=== PATIENT | female | born 1980 | race Caucasian/White ===

== ENCOUNTER → 2022-04-04 | Outpatient (CLI) | payer MEDICAID | LOC: MHCPAIN 11:15 | DX: M54.81 Occipital neuralgia (principal); M54.2 Cervicalgia; R51.9 Headache, unspecified | CPT/HCPCS: J1040 ==

== ENCOUNTER 2023-03-12 10:41 | Outpatient (RCR) | payer MEDICAID ==
[~2023-03-12] VITALS: Ht 165.1 cm; Wt 99.3 kg
[2023-03-12] VITALS (8 sets, daily range): BP systolic 119–129; BP diastolic 82–86; PULSE 62–71; TEMP 97.5
[~2023-03-12 10:41] MED LIST: ALDACTONE 25MG25 M1 PO; BENADRYL25 M2 PO; BRINTELLIX10 PO; COREG12.5 MG PO; IMITREX100 MG PO; NAMENDA 10MG TA10 MG PO; NATURAL MAGNES200 MG PO; PHENERGAN 25 TA25 MG PO; PROBIOTIC BLEN1 EACH PO; REYVOW PO; ROBAXIN 75750 MG/TAB PO; TORADOL 10MG TA10 MG PO; VITAMIN B COMPL1 SGL PO; VITAMIND3 5000 PO; VYEPTI100 MG/1 M IV; ZANAFLEX 4MG TAB4 MG PO
[2023-03-12] MEDS ORDERED: ATARAX 25MG25 MG/TAB PO (11:02)
[2023-03-12] MEDS ORDERED: ABILIFY5 MG PO (11:02)
--- NOTE | 2023-03-12 13:03 | NUR ---
Pt tolerated infusion and 1 hr monitoring period without issue. IV DC'd, site wrapped with coban. She exits dept with steady gait.
== END 2023-03-12 13:04 | disposition home or self-care (01) ==
LOC: EUO 10:41
DX: G43.109 Migraine with aura, not intractable, without status migrainosus (principal)
CPT/HCPCS: J3032

== ENCOUNTER → 2023-04-03 | Outpatient (CLI) | payer MEDICAID ==
[~2023-04-03] MED LIST changes: +ABILIFY5 MG PO; +ATARAX 25MG25 MG/TAB PO
== END ==
LOC: MHCPAIN 09:58
DX: M47.812 Spondylosis without myelopathy or radiculopathy, cervical region (principal); G44.86 Cervicogenic headache
CPT/HCPCS: J0665

== ENCOUNTER → 2023-05-29 | Outpatient (CLI) | payer MEDICAID ==
[~2023-05-29] MED LIST changes: +Lidocaine PF 2% (20 MG/ML) 5 ML VIAL ONE; +Midazolam 2 MG/2 ML VIAL ONE; +fentaNYL 50 MCG/ML 2 ML VIAL ONE
== END ==
LOC: MHCPAIN 08:58
DX: M47.812 Spondylosis without myelopathy or radiculopathy, cervical region (principal); M54.2 Cervicalgia
CPT/HCPCS: J0665; J2250; J3010

== ENCOUNTER 2023-06-04 10:33 | Outpatient (CLI) | payer MEDICAID ==
[~2023-06-04] VITALS: Ht 165.1 cm; Wt 99.3 kg
[~2023-06-04 10:33] MED LIST changes: -Lidocaine PF 2% (20 MG/ML) 5 ML VIAL ONE; -Midazolam 2 MG/2 ML VIAL ONE; -fentaNYL 50 MCG/ML 2 ML VIAL ONE
[2023-06-04] MEDS ORDERED: EPTINEZUMAB JJMR IV ONE (11:00)
[2023-06-04] MEDS ORDERED: NS IV ONE (11:00)
[2023-06-04 12:44] VITALS: BP 114/82; PULSE 82; TEMP 97.9
== END 2023-06-04 12:50 | disposition home or self-care (01) ==
LOC: EUO 10:33
DX: G43.E09 Chronic migraine with aura, not intractable, without status migrainosus (principal)
CPT/HCPCS: J3032

== ENCOUNTER → 2023-09-04 | Outpatient (CLI) | payer MEDICARE, MEDICAID | LOC: MHCPAIN 09:27 | DX: M47.812 Spondylosis without myelopathy or radiculopathy, cervical region (principal); M54.2 Cervicalgia ==

== ENCOUNTER → 2023-12-11 | Outpatient (CLI) | payer MEDICARE, MEDICAID | LOC: MHCPAIN 09:30 | DX: M47.812 Spondylosis without myelopathy or radiculopathy, cervical region (principal); M54.2 Cervicalgia; G44.86 Cervicogenic headache | CPT/HCPCS: J0665 ==